=== PATIENT | male | born 1975 | race Caucasian/White ===

== ENCOUNTER → 2017-02-09 | Outpatient (CLI) | payer OTHER | LOC: FLAB 08:50 | PROVIDERS: ATTEND Physician Assistant Surgical | DX: M54.5 Low back pain (principal); Z98.1 Arthrodesis status ==

== ENCOUNTER 2017-07-05 11:54 | Emergency (ER) | payer OTHER ==
[2017-07-05 12:00] VITALS: RESP 16
[2017-07-05 15:33] VITALS: O2SAT 98
--- NOTE | 2017-07-05 16:37 | EDPHY ---
H & P Stated Complaint: HAD L5,S1 FUSION IN JANUARY, NOW FEELS SOMETHING IS WRONG HPI/ROS: Chief complaint: Low back pain History of present illness: This is a 41-year-old male who presents to the emergency department for evaluation of low back pain. Patient underwent an L5- S1 fusion in the spring by Dr. Denny. He has been doing well since then. However yesterday he states he started to notice discomfort in the low back around where he believes the surgery was performed and felt a clicking movement. The pain is worsened today. Worse with movement, better with rest. He does report some numbness into his left leg primarily affecting his left great toe. He has had radicular symptoms previously but usually to the right side. He does state he has been performing heavy labor lately including changing the doors on his car and using a pick ax. However no direct trauma. Denies other associated signs or symptoms including no fevers, no other paresthesias other than described above, no weakness or paralysis, no bowel or bladder dysfunction. Review of systems: A 10 point review of systems was obtained and other than described above was negative - Personal History Current Tetanus Diphtheria and Acellular Pertussis (TDAP): Yes Tetanus Vaccine Date: < 10 YEARS - Medical/Surgical History Hx Asthma: No Hx Chronic Respiratory Disease: No Hx Diabetes: No Hx Cardiac Disease: No Hx Renal Disease: No Hx Cirrhosis: No Hx Alcoholism: No Hx HIV/AIDS: No Hx Splenectomy or Spleen Trauma: No Other PMH: L5,S1 FUSION - Social History Smoking Status: Never smoked - Physical Exam Exam: General Appearance: Alert, nontoxic Eyes: Pupils equal and round no injection. Respiratory: Chest is nontender, lungs are clear to auscultation. Cardiac: regular rate and rhythm. Gastrointestinal: Abdomen is soft and nontender, no masses, bowel sounds normal. Musculoskeletal: Neck is supple and nontender. Extremities have full range of motion and are nontender. Skin: No rashes or lesions. Neurological: Alert and oriented x4. Cranial nerves 2-12 grossly intact. Strength and sensation appears intact and symmetrical. Straight leg raise test is negative bilaterally. He is ambulating well. Constitutional: Initial Vital Signs Temperature (C) 37 C 07/05/17 11:57 Heart Rate 82 07/05/17 11:57 Respiratory Rate 16 07/05/17 11:57 Blood Pressure 132/81 H 07/05/17 11:57 O2 Sat (%) 96 07/05/17 11:57 O2 Delivery Mode Room Air Allergies/Adverse Reactions: No Known Allergies Allergy (Unverified 07/05/17 12:01) Home Medications: Medication Instructions Recorded NK [No Known Home Meds] 07/05/17 Medical Decision Making - Diagnostics Imaging Results: Imaging Impressions Lumbar Spine MRI 07/05/17 12:44 Impression: 1. Mild progression of degenerative disk disease at L4-L5 with mild increased desiccation along with diffuse disk bulge, facet hypertrophy, and ligamentum flavum hypertrophy as detailed above. 2. Fusion between L5 and S1 segments with disk replacement material and right- sided pedicle screw along with paraspinal ric and posterior interspinous process fusion plate. Findings discussed with ZABRINA bAreu at 16:47 hour, 07/05/2017. Lumbar Spine X-Ray 07/05/17 12:44 Impression: Stable postsurgical changes of fusion L5-S1. Early degenerative disk and degenerative joint disease L4-L5. Sacrum and Coccyx X-Ray 07/05/17 12:44 Impression: Postsurgical changes of fusion L5-S1. Otherwise, unremarkable sacrum and coccyx. Imaging: I viewed and interpreted images myself ED Course/Re-evaluation: I did consult with Dr. Baldemar Prater of Neurosurgery. He recommends plain films and MRI of the low back. If these are without significant findings patient can be discharged home and follow up in clinic. If they are abnormal he should be re-contacted. Patient seen under the supervision of my secondary supervising physician Dr. Elver Wiseman. Patient presents to the emergency department for low back pain. He does have some tingling in his left toe he is not sure if this started before or after the back pain. He is otherwise nontoxic. He has not required pain meds in the emergency room and has declined home pain medicine. X-rays are unremarkable. MRI did show mild worsening of disc disease seen previously. I believe he is appropriate for discharge home. Home care is discussed. Again he has declined any pain medicine. He is to follow up with Dr. Denny. Strict return precautions are given. Differential Diagnosis: Included but not limited to contusion, sprain or strain, herniated intervertebral disc, bony fracture, unlikely cauda equina syndrome or epidural lesion or abscess Departure - Departure Disposition: Home, Routine, Self-Care Clinical Impression: Low back pain Qualifiers: Chronicity: acute Back pain laterality: bilateral Sciatica presence: with sciatica Sciatica laterality: sciatica of left side Qualified Code(s): M54.42 - Lumbago with sciatica, left side Instructions: Low Back Strain (ED) Additional Instructions: Follow-up with your neurosurgeon for recheck If symptoms worsen or new symptoms develop including increasing or intolerable pain, numbness or tingling that is worsening or new, difficulty moving the legs , difficulty controlling bowel or bladder or any other symptoms return to the emergency room. Referrals: NONE *PRIMARY CARE P,. [Primary Care Provider] - As per Instructions Akil Denny MD [Medical Doctor] - As per Instructions
[2017-07-05 17:06] VITALS: BP 122/76; PULSE 81; TEMP 98.1
== END 2017-07-05 17:06 | disposition home or self-care (01) ==
DX: M54.42 Lumbago with sciatica, left side (principal)

== ENCOUNTER → 2017-11-17 | Outpatient (CLI) | payer OTHER | LOC: BMCIMAGING 11:11 | PROVIDERS: ATTEND Family Medicine | DX: R07.89 Other chest pain (principal) | CPT/HCPCS: 71101-PO ==

== ENCOUNTER → 2018-01-17 | Outpatient (CLI) | payer OTHER | LOC: FIMAGING 13:20 | PROVIDERS: ATTEND Physician Assistant Surgical | DX: Z09 Encounter for follow-up examination after completed treatment for conditions other than malignant neoplasm (principal); Z98.1 Arthrodesis status ==

== ENCOUNTER → 2018-02-10 | Outpatient (CLI) | payer OTHER | LOC: BMCIMAGING 11:29 | PROVIDERS: ATTEND Family Medicine | DX: M25.521 Pain in right elbow (principal) ==

== ENCOUNTER → 2018-02-16 | Outpatient (CLI) | payer OTHER | LOC: BMCIMAGING 13:10 | PROVIDERS: ATTEND Emergency Medicine | DX: S49.91XA Unspecified injury of right shoulder and upper arm, initial encounter (principal) ==

== ENCOUNTER → 2018-02-20 | Outpatient (CLI) | payer OTHER | LOC: FIMAGING 11:14 | PROVIDERS: ATTEND Orthopaedic Surgery Hand Surgery | DX: S43.431A Superior glenoid labrum lesion of right shoulder, initial encounter (principal); S46.211A Strain of muscle, fascia and tendon of other parts of biceps, right arm, initial encounter ==